=== PATIENT | female | born 1935 | race Caucasian/White ===

== ENCOUNTER 2017-08-06 20:26 | Emergency (ER) | payer MEDICARE ==
--- NOTE | 2017-08-06 20:54 | ER Document Report ---
ED General Pain - General Stated Complaint: SI Time Seen by Provider: 08/06/17 20:46 TRAVEL OUTSIDE OF THE [place] IN LAST 30 DAYS: No - HPI Notes: 82-year-old female with a history of depression who presents with feeling depressed and suicidal ideation. Patient states she moved here 3-4 years ago from [place] now resides with her daughter. She states they "fight quite a bit and they will get along. Over the last few days she just become despondent and states it feels suicidal. Her plan is to overdose on some type of pills. She does not have a history of previous suicide attempt. No medication changes recently. No homicidal ideation. Does not hear voices. No other modifying factors, no other associated symptoms, no other provocative or palliative factors. - Related Data Allergies/Adverse Reactions: Sulfa (Sulfonamide Antibiotics) Allergy (Verified 11/03/14 09:23) zolpidem tartrate [From Ambien] Adverse Reaction (Mild, Verified 11/03/14 09:23) Past Medical History - General Information source: Patient - Social History Smoking Status: Unknown if Ever Smoked Family History: Reviewed & Not Pertinent - Past Medical History Cardiac Medical History: Reports: Hx Hypertension Denies: Hx Heart Attack Pulmonary Medical History: Denies: Hx Asthma Neurological Medical History: Denies: Hx Cerebrovascular Accident, Hx Seizures GI Medical History: Reports: Hx Ulcer. Denies: Hx Hepatitis, Hx Hiatal Hernia Infectious Medical History: Denies: Hx Hepatitis Past Surgical History: Reports: Hx Hysterectomy. Denies: Hx Mastectomy, Hx Open Heart Surgery, Hx Pacemaker Review of Systems - Review of Systems Notes: Review of systems as in the history of present illness, otherwise negative. Physical Exam - Vital signs Vitals: Temp Pulse Resp BP Pulse Ox 97.9 F 57 L 16 165/57 H 99 08/06/17 21:00 08/06/17 21:00 08/06/17 21:00 08/06/17 21:00 08/06/17 21:00 - Notes Notes: General: Well developed . HEENT: Normocephalic, atraumatic. Pupils equal round reactive to light. No JVD. Chest: No trauma. Respiratory: Good air exchange, normal excursion. Cardiac: Regular rhythm. No murmurs or gallops. Abdomen: Soft, benign. Nondistended. Nontender. Back: No asymmetry or gross abnormality. Motor: Grossly normal power and tone. Neurologic: Alert, nonfocal. Cranial nerves II-12 are intact. Sensation intact. Vascular: Well perfused. Normal peripheral pulses. Skin: No petechiae or purpura. Course - Re-evaluation Re-evalutation: 08/06/17 20:54 Elderly female who presents with the after mentioned symptoms. Certainly increased risk of suicidality. No evidence of acute psychosis or evidence of acute medical emergency. Will obtain basic screening psychiatric labs, she will be evaluated by the psychiatry team in the morning for possible crisis placement. 08/06/17 20:54 08/06/17 23:26 Available labs reviewed, CBC, chemistries are unremarkable. Alcohol normal. Patient is medically stable, no acute medical emergency is noted. She is now pending evaluation disposition by psychiatric services. - Vital Signs Vital signs: Temp Pulse Resp BP Pulse Ox 97.9 F 57 L 16 165/57 H 99 08/06/17 21:00 08/06/17 21:00 08/06/17 21:00 08/06/17 21:00 08/06/17 21:00 - Laboratory Result Diagrams: 08/06/17 21:15 08/06/17 21:15 Laboratory results interpreted by me: 08/06/17 21:15 BUN 25 H Discharge - Discharge Clinical Impression: Suicidal ideation Depression Qualifiers: Depression Type: unspecified Qualified Code(s): F32.9 - Major depressive disorder, single episode, unspecified Condition: Stable
[2017-08-06 21:26] LABS: HEMATOCRIT 37.7 % (36.0-47.0); HEMOGLOBIN 12.8 g/dL (12.0-15.5); MEAN CORPUSCULAR HEMOGLOBIN 31.5 pg (27.0-33.4); MEAN CORPUSCULAR VOLUME 93 fl (80-97); PLATELET COUNT 196 10^3/uL (150-450); RED BLOOD COUNT 4.07 10^6/uL (3.72-5.28); RED CELL DISTRIBUTION WIDTH 12.8 % (11.5-14.0); WHITE BLOOD COUNT 5.2 10^3/uL (4.0-10.5)
[2017-08-06 21:40] LABS: ALANINE AMINOTRANSFERASE 32 U/L (9-52); ALBUMIN 4.4 g/dL (3.5-5.0); ALKALINE PHOSPHATASE 67 U/L (38-126); ANION GAP 13 (5-19); ASPARTATE AMINO TRANSFERASE 31 U/L (14-36); BILIRUBIN,DIRECT 0.3 mg/dL (0.0-0.4); BILIRUBIN,TOTAL 0.4 mg/dL (0.2-1.3); BLOOD UREA NITROGEN 25 mg/dL (7-20); CALCIUM 9.9 mg/dL (8.4-10.2); CARBON DIOXIDE 25 mmol/L (22-30); CHLORIDE 104 mmol/L (98-107); GLUCOSE 90 mg/dL (75-110); POTASSIUM 3.9 mmol/L (3.6-5.0); SODIUM 142.2 mmol/L (137-145); TOTAL PROTEIN 7.2 g/dL (6.3-8.2)
[2017-08-06 21:42] LABS: ALCOHOL < 10 mg/dL (NONE DETECTED)
[2017-08-07] MEDS ORDERED: TEMAZEPAM 15 MG CAPSULE PO ONE (01:38)
[2017-08-07 01:58] LABS: AMORPHOUS SEDIMENT,URINE TRACE /HPF; APPEARANCE,URINE TURBID; BILIRUBIN,URINE NEGATIVE (NEGATIVE); COLOR,URINE YELLOW; GLUCOSE, URINE NEGATIVE (NEGATIVE); KETONES,URINE 20 mg/dL (NEGATIVE); LEUKOCYTE ESTERASE,URINE LARGE (NEGATIVE); NITRITE,URINE NEGATIVE (NEGATIVE); PROTEIN,URINE 30 mg/dL (NEGATIVE); URINE SPECIFIC GRAVITY 1.016; UROBILINOGEN,URINE NEGATIVE mg/dL (<2.0)
[2017-08-07 02:19] LABS: URINE AMPHETAMINES SCREEN NEGATIVE; URINE BARBITURATES SCREEN NEGATIVE; URINE BENZODIAZEPINES SCREEN UNCONFIRMED POSITIVE; URINE COCAINE SCREEN NEGATIVE; URINE MARIJUANA (THC) SCREEN NEGATIVE; URINE METHADONE SCREEN NEGATIVE; URINE PHENCYCLIDINE SCREEN NEGATIVE
--- NOTE | 2017-08-07 07:22 | EKG REPORT ---
SEVERITY:- ABNORMAL ECG - SINUS RHYTHM LEFT VENTRICULAR HYPERTROPHY : Confirmed by: Gui George MD 07-Aug-2017 07:20:22
[2017-08-07] MEDS ORDERED: VENLAFAXINE HCL 75 MG CAP.SR.24H PO SCH (10:00)
[2017-08-07] MEDS ORDERED: LEVOTHYROXINE SODIUM 0.088 MG TABLET PO SCH (10:00)
[2017-08-07] MEDS ORDERED: CEFTRIAXONE INJ 1000 MG VIAL IM ONE (10:15)
[2017-08-07] MEDS ORDERED: LIDOCAINE 1% INJ-PF (10 MG/ML) 30 ML SDV INJ ONE (10:15)
--- NOTE | 2017-08-07 10:19 | ER Document Report ---
Doctor's Note Notes: 08/07/17 10:16 Rounds: Chart reviewed. Patient sleeping at this time so not interviewed at this point. Patient has a history of depression. Had expressed suicidal thoughts. Labs were positive for benzos and very suggestive of a UTI. There is no indication that the patient has UTI symptoms from reviewing the chart. I am going to repeat her urinalysis and give her a gram of Rocephin IM and culture her urine. Vital signs are all normal. Patient appears to be medically stable for transfer or discharge. Deb Staley MD
[2017-08-07] MEDS: METOPROLOL TARTRATE 50 MG TABLET PO SCH ×2 (10:28→18:33)
[2017-08-07] MEDS: AMLODIPINE BESYLATE 5 MG TABLET PO SCH (10:30)
--- NOTE | 2017-08-07 12:32 | RADIOLOGY REPORT (SQ) ---
EXAM DESCRIPTION: CT HEAD WITHOUT COMPLETED DATE/TIME: 08/07/2017 12:22 pm REASON FOR STUDY: Altered mental status, questionable dementia COMPARISON: None. TECHNIQUE: Axial images acquired through the brain without intravenous contrast. Images reviewed wi th bone, brain and subdural windows. Additional sagittal and coronal reconstructions were generated. Images stored on PACS. All CT scanners at this facility use dose modulation, iterative reconstruction, and/or weight based d osing when appropriate to reduce radiation dose to as low as reasonably achievable (ALARA). [facility]: Dose Right [facility]: CareDose [facility]: Dose Right [facility]: Teradose 4D [facility]: Boticca RADIATION DOSE: CT Rad equipment meets quality standard of care and radiation dose reduction techniq ues were employed. CTDIvol: 53.2 mGy. DLP: 964 mGy-cm. mGy. LIMITATIONS: None. FINDINGS: VENTRICLES: Normal size and contour. CEREBRUM: No masses. No hemorrhage. No midline shift. No evidence for acute infarction. Extensive areas of low density in the white matter most likely chronic small vessel ischemic changes. CEREBELLUM: No masses. No hemorrhage. No alteration of density. No evidence for acute infarction. EXTRAAXIAL SPACES: No fluid collections. No masses. ORBITS AND GLOBE: No intra- or extraconal masses. Normal contour of globe without masses. CALVARIUM: No fracture. PARANASAL SINUSES: No fluid or mucosal thickening. SOFT TISSUES: No mass or hematoma. OTHER: No other significant finding. IMPRESSION: Diffuse chronic appearing bifrontal and biparietal white matter small vessel ischemic ch nikunj. No CT evidence of acute large territory ischemic change, acute intracranial hemorrhage, mass effect, or midline shift. EVIDENCE OF ACUTE STROKE: NO. COMMENT: Quality ID # [id number]: Final reports with documentation of one or more dose reduction techniques (e.g., Automated exposure control, adjustment of the mA and/or kV according to patient size, use of iterative reconstruction technique) TECHNICAL DOCUMENTATION: JOB ID: [id number] [employer]- All Rights Reserved Reading location - IP/workstation name: PENDING SALE TO [email or web address]
[2017-08-07 12:54] LABS: APPEARANCE,URINE CLEAR; BILIRUBIN,URINE NEGATIVE (NEGATIVE); COLOR,URINE YELLOW; GLUCOSE, URINE NEGATIVE (NEGATIVE); KETONES,URINE 20 mg/dL (NEGATIVE); LEUKOCYTE ESTERASE,URINE NEGATIVE (NEGATIVE); NITRITE,URINE NEGATIVE (NEGATIVE); PROTEIN,URINE NEGATIVE (NEGATIVE); URINE SPECIFIC GRAVITY 1.012; UROBILINOGEN,URINE NEGATIVE mg/dL (<2.0)
[2017-08-07] MEDS ORDERED: DIVALPROEX SODIUM 500 MG TAB.SR.24H PO ONE (15:00)
--- NOTE | 2017-08-07 15:01 | PSYCHOLOGICAL NOTE ---
Psych Note - Psych Note Psych Note: Reason for consult: Suicidal ideation 82-year-old female with a history of depression who presents with feeling depressed and suicidal ideation. Patient states she moved here 3-4 years ago from [place] now resides with her daughter. She states they "fight quite a bit and they will get along. Over the last few days she just become despondent and states it feels suicidal. Her plan is to overdose on some type of pills. She does not have a history of previous suicide attempt. Patient disclose that she has been depressed. She denies a history of depression, suicide attempts, inpatient treatments, or medications for mental health. Patient is unable to provide any medications she takes. Head CT 08/07/2017 Diffuse chronic appearing bifrontal and biparietal white matter small vessel ischemia change Attending physician noted Labs were positive for benzos and very suggestive of a UTI. Medication recommendation per [facility]'s contracted psychiatrist Dr. Sindhu MD are as follows: 1. Depokate 500mg twice a daily for mood stabilization 2. Buspar 5mg every morning and 10mg every evening for anxiety and agitation 3. please discontinue temazepam 4. 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 Patient present is probable dementia with UTI. Patient's caregiver, her daughter, disclosed she is unable to continue caring for the patient. Behavioral health team discussed options and discharge planning engaged with patent's daughter to learn steps for placement. Patient's daughter understands the patient will have to return home during the placement process. Medication recommendation have been provided. Patient needs to be stabilized before going home. Treating physicians are asked to consider avoiding prescribing benzodiazepines (example Ativan, Xanax, Valium, Klonopin), antipsychotics ( example Haldol, Geodon, Zyprexa, Seroquel), some sleep aids (such as, Ambien, Lunesta, Sonata), narcotic pain medications, and high-dose steroid (prednisone) as these have been known to cause and/or increased symptoms of aggression, psychosis, or paranoia in patients with neurodegenerative process, such as dementia, Alzheimer's disease, traumatic brain injury, etc.
[2017-08-07] MEDS: BUSPIRONE HCL 10 MG TABLET PO SCH (18:33)
[2017-08-07] MEDS: DIVALPROEX SODIUM 500 MG TAB.SR.24H PO SCH (18:33)
[2017-08-07] MEDS: ATORVASTATIN CALCIUM 10 MG TABLET PO SCH (21:59)
[2017-08-07] MEDS ORDERED: TEMAZEPAM 15 MG CAPSULE PO PRN (23:29)
[2017-08-07] MEDS: TEMAZEPAM 15 MG CAPSULE PO PRN (23:37)
[2017-08-08] MEDS ORDERED: LEVOTHYROXINE SODIUM 0.088 MG TABLET PO SCH (06:00)
[2017-08-08] MEDS ORDERED: LEVOTHYROXINE SODIUM 0.088 MG TABLET ONE (06:42)
[2017-08-08] MEDS ORDERED: BUSPIRONE HCL 10 MG TABLET PO SCH (08:00)
[2017-08-08] MEDS ORDERED: VENLAFAXINE HCL 37.5 MG CAP.SR.24H PO SCH (08:00)
--- NOTE | 2017-08-08 09:54 | ER Document Report ---
Doctor's Note Notes: 08/08/17 09:54 Complete psych note This is a follow-up evaluation: Primary diagnosis-suicidal ideation Patient is here for the above reason, has been doing well, currently has --no complaint. On examination-vitals reviewed in the chart. General exam: Alert oriented 3 not in any acute distress HEENT: Normocephalic atraumatic pupils are equal reactive to light, Lungs-clear breath sounds no rales or wheezing. Cardiovascular system: Normal S1-S2 no murmurs. Gastrointestinal: Normal breath sounds, no organomegaly positive bowel sounds. Genitourinary: Skin: No lesions noted, no rash Psychiatric: Diagnoses: Suicidal ideation Plan: Waiting for mental health evaluation to make a decision.
[2017-08-08] MEDS: METOPROLOL TARTRATE 50 MG TABLET PO SCH ×2 (10:39→18:56)
[2017-08-08] MEDS: DIVALPROEX SODIUM 500 MG TAB.SR.24H PO SCH ×2 (10:39→18:56)
[2017-08-08] MEDS: AMLODIPINE BESYLATE 5 MG TABLET PO SCH (10:39)
--- NOTE | 2017-08-08 16:10 | PSYCHOLOGICAL NOTE ---
Psych Note - Psych Note Psych Note: Reason for consult: Suicidal ideation 82-year-old female with a history of depression who presents with feeling depressed and suicidal ideation. Patient states she moved here 3-4 years ago from [place] now resides with her daughter. She states they "fight quite a bit and they will get along. Over the last few days she just become despondent and states it feels suicidal. Her plan is to overdose on some type of pills. She does not have a history of previous suicide attempt. Patient is very pleasant and discloses that she has been feeling much better. Clinician notes patient has been unable to provide information in regards to emergency contact number i.e. 911 or what to do if there is water flooding in the home. Patient was unable to identify her year or what the current year is. Patient also was unable to demonstrate abstract thinking and had difficulty with memory. Clinician contacted patient's daughter to discuss progress on placement. She disclosed that she has decided against placing her mother in a [facility] "I just cannot do it." She discloses that she has noticed a major difference in her mother's presentation "even just the 4 hours after getting her medicine she was so much better." Clinician provided psychoeducation on medications and UTIs effects on geriatric population. She reports that she would be able to fern picker the patient in the morning because she needs to go home and make sure to take all the locks off the interior doors in the home the share. Head CT 08/07/2017 Diffuse chronic appearing bifrontal and biparietal white matter small vessel ischemia change Attending physician noted Labs were positive for benzos and very suggestive of a UTI. Medication recommendation per [facility]'s contracted psychiatrist Dr. Sindhu MD are as follows: 1. Depokate 500mg twice a daily for mood stabilization 2. Buspar 5mg every morning and 10mg every evening for anxiety and agitation 3. please discontinue temazepam 4. 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 Patient present is probable dementia with UTI. Medication recommendation have been provided. Patient needs to be stabilized before going home. Treating physicians are asked to consider avoiding prescribing benzodiazepines (example Ativan, Xanax, Valium, Klonopin), antipsychotics ( example Haldol, Geodon, Zyprexa, Seroquel), some sleep aids (such as, Ambien, Lunesta, Sonata), narcotic pain medications, and high-dose steroid (prednisone) as these have been known to cause and/or increased symptoms of aggression, psychosis, or paranoia in patients with neurodegenerative process, such as dementia, Alzheimer's disease, traumatic brain injury, etc.
[2017-08-08] MEDS: BUSPIRONE HCL 10 MG TABLET PO SCH (18:55)
[2017-08-08] MEDS: ATORVASTATIN CALCIUM 10 MG TABLET PO SCH (21:40)
[2017-08-08] MEDS: TEMAZEPAM 15 MG CAPSULE PO PRN (21:41)
[2017-08-09 08:03] VITALS: BP 154/68
== END 2017-08-09 08:04 | disposition home or self-care (01) ==
LOC: ER 20:26
DX: F32.9 Major depressive disorder, single episode, unspecified (principal); F03.91 Unspecified dementia, unspecified severity, with behavioral disturbance; R45.851 Suicidal ideations; Z88.2 Allergy status to sulfonamides; I10 Essential (primary) hypertension
CPT/HCPCS: 93005; 99285; 96372; 36415; 87086; 80307 ×2; 84443; 85027; 80053; 81001; 93010; A9270 ×16; J3490; J0696